=== PATIENT | female | born 1940 | race Caucasian/White ===

== ENCOUNTER 2017-05-12 11:42 | Emergency (ER) | payer MEDICARE, BC ==
[~2017-05-12] VITALS: Ht 165.1 cm; Wt 57.0 kg
[2017-05-12 11:55] VITALS: BP 197/115; PULSE 93; RESP 16; TEMP 97.5; O2SAT 100
[2017-05-12] MEDS ORDERED: MONT10TA4 PO (14:22)
[2017-05-12] MEDS ORDERED: [UNRECOGNIZED DRUG - CODE] SL (14:22)
--- NOTE | 2017-05-12 14:27 | PD ---
HPI Chief Complaint: Dizziness Time Seen by Provider: 14:16 Travel History International Travel<30 days: No Contact w/Intl Traveler<30days: No Traveled to known affect area: No History of Present Illness HPI This patient complains of elevated blood pressure. Normally much better than that. Currently around 200 systolic. She denies any headache. No syncope or chest pain or presyncopal symptoms. She has history of sinus problems but those are stable today. No alleviating factors. Severity is mild. Duration one day PFSH Past Medical History Diminished Hearing: No Tetanus Vaccination: < 5 Years Influenza Vaccination: Yes ?: Not Social History Alcohol Use: Yes (soc) Tobacco Use: No Substance Use: No Allergies-Medications (Allergen,Severity, Reaction): Coded Allergies: No Known Allergies (Unverified , 05/12/17) Reported Meds & Prescriptions Reported Meds & Active Scripts Active Reported Montelukast (Montelukast Sodium) 10 Mg Tab 10 Mg PO HS Zolpidem (Zolpidem Tartrate) 3.5 Mg Sub 3.5 Mg SL HS PRN Review of Systems General / Constitutional: No: Fever Eyes: No: Visual changes HENT: No: Headaches Cardiovascular: No: Chest Pain or Discomfort Respiratory: No: Shortness of Breath Gastrointestinal: No: Abdominal Pain Genitourinary: No: Dysuria Musculoskeletal: No: Pain Skin: No Rash Neurologic: No: Weakness Psychiatric: No: Depression Endocrine: No: Polydipsia Hematologic/Lymphatic: No: Easy Bruising Physical Exam Narrative GENERAL: Well-nourished, well-developed patient in no apparent distress. SKIN: Focused skin assessment reveals no rash and nodules. Skin is Warm and dry. HEAD: Atraumatic. Normocephalic. EYES: Pupils equal and round. No scleral icterus. No injection or drainage. ENT: No nasal bleeding or discharge. Mucous membranes pink and moist. NECK: Trachea midline. No JVD. CARDIOVASCULAR: Regular rate and rhythm. No murmur appreciated. RESPIRATORY: No accessory muscle use. Clear to auscultation. Breath sounds equal bilaterally. GASTROINTESTINAL: Abdomen soft, non-tender, nondistended. Hepatic and splenic margins not palpable. MUSCULOSKELETAL: No obvious deformities. No clubbing. No cyanosis. No edema. NEUROLOGICAL: Awake and alert. No obvious cranial nerve deficits. Motor grossly within normal limits. Normal speech. PSYCHIATRIC: Appropriate mood and affect; insight and judgment normal. Data Data Last Documented VS Vital Signs Date Time Temp Pulse Resp B/P (MAP) Pulse Ox O2 Delivery O2 Flow Rate FiO2 05/12/17 16:10 05/12/17 14:16 16 100 05/12/17 11:55 97.5 93 Orders Orders Clonidine (Catapres) (05/12/17 14:30) MDM Medical Decision Making Medical Screen Exam Complete: Yes Emergency Medical Condition: Yes Medical Record Reviewed: Yes Differential Diagnosis Accelerated hypertension, hypertensive urgency, essential hypertension Narrative Course I have reviewed the patient's electronic medical record. I gave her dose of clonidine for accelerated hypertension Will reassess her and recheck Neurologic exam normal On recheck her blood pressures 150s systolic Stable for outpatient follow-up Diagnosis Primary Impression: Accelerated hypertension Additional Instructions: Check and record blood pressure daily The patient was advised to follow up with their physician and return if they worsen. Med/Other Pt SpecificInfo: Other Disposition: 01 DISCHARGE HOME Condition: Stable Stoney Mistry MD May 12, 2017 14:27
[2017-05-12] MEDS ORDERED: cloNIDine HCL 0.2 MG TAB PO ONE (14:30)
[2017-05-12 14:59] VITALS: BP 153/83
== END 2017-05-12 16:31 | disposition home or self-care (01) ==
LOC: PHED 11:42
DX: I10 Essential (primary) hypertension (principal)
CPT/HCPCS: 99283